=== PATIENT | male | born 1985 | race Caucasian/White ===

== ENCOUNTER 2018-12-17 09:50 | Emergency (ER) | payer OTHER ==
[~2018-12-17] VITALS: Ht 190.5 cm; Wt 79.0 kg
[2018-12-17 11:26] VITALS: BP 143/83
== END 2018-12-17 18:16 | disposition left against medical advice (07) ==
LOC: EDBD 09:50 → ER 09:50
DX: Z53.21 Procedure and treatment not carried out due to patient leaving prior to being seen by health care provider (principal)